=== PATIENT | male | born 1970 | race Caucasian/White ===

== ENCOUNTER → 2018-09-14 | Day surgery (SDC) | payer OTHER ==
[~2018-09-14] VITALS: Ht 190.5 cm; Wt 146.5 kg
[~2018-09-14] MED LIST: BUPIVAC MPF-EPI 0.5%-1:200000 30 ML VIAL. ONE; CELE200C PO; DEXAMETHASONE SOD PHOS 20 MG/5 ML VIAL. ONE; GLYCOPYRROLATE 1 MG/5 ML VIAL. ONE; HYDROmorphone 2 MG/ML VIAL IV PRN; IV RINGERS,LACTATED 1000ML 1,000 ML IV SCH; KETOROLAC 30 MG/ML INJ FOR OR. INJ ONE; LIDOCAINE 1% PF 2 ML VIAL. ID PRN; LIDOCAINE 2% PF Vial for OR 5 ML VIAL. ONE; MIDAZOLAM HCL/PF 2 MG/2 ML VIAL. ONE; MORPHINE SULFATE 2 MG/ML VIAL. IV PRN; NEOSTIGMINE METHYLSULFATE 5 MG/5 ML SYRINGE. ONE; ONDANSETRON PF 4 MG/2 ML VIAL. IV PRN; ONDANSETRON PF 4 MG/2 ML VIAL. ONE; OXYC-323 PO; PROCHLORPERAZINE 10 MG/2 ML VIAL. IV PRN; PROPOFOL 20 ML IV ONE; ROCURONIUM 50 MG/5 ML VIAL. ONE; SEVOFLURANE 61 TO 120 MINUTES. IH ONE; TRAM-48 PO; fentaNYL PF VIAL 100 MCG/2 ML VIAL IV PRN; fentaNYL PF VIAL 100 MCG/2 ML VIAL ONE; oxyCODONE/APAP 5/325 1 TAB TABLET PO PRN
--- NOTE | 2018-09-14 09:22 | PDOC4 ---
Operative Note Operative Note Date: 09/14/2018 Preoperative diagnosis: Incarcerated abdominal hernia Postoperative diagnosis: Same Procedure: Robotic-assisted laparoscopic ventral hernia repair with mesh Surgeon: Adelso Specimen: None Dictation: Patient is a 48 -year-old male with a painful bulge just above his umbilicus with incarcerated omentum consistent with a ventral hernia procedure of robotic-assisted laparoscopic ventral hernia repair with mesh was explained to the patient detail was benefits were also discussed including bleeding infection injury to intra-abdominal contents possibly necessitating further or open operations alternatives to this procedure also discussed with the patient seemed understanding gave both verbal and written consent had procedure performed. Patient was taken to the operating room placed supine position general anesthesia was initiated once patient was asleep and intubated his abdomen was prepped and draped usual sterile fashion using ChloraPrep. An area in the left upper quadrant was injected with quarter percent Marcaine with epinephrine incisions made lead blade scalpel and a Visiport 5 mm was used to gain access to the abdominal cavity and creating pneumoperitoneum once this complete 5 mm scope was placed and the abdomen was inspected no other at maladies were noted was noted that the ventral hernia was incarcerated with omentum. At this time a da [place] 8 mm port was placed in the mid left abdomen a second 8 mm da [place]ito port was placed in the left lower abdomen and the Visiport was changed out for da Chito 8 mm port. The da Chito robot was brought in and docked to all port sites surgeon went to the robotic console using grasper and Endo Barbara scissors the incarcerated omentum was reduced from the hernia defect. The hernia defect was then closed with a running 20 nonabsorbable V lock suture. Ventral light ST Bard mesh was then used to cover the hernia defect this was sewn in place with a running 20 the lock absorbable suture. Surgeon returned to the operative field. The da Chito robot was undocked from all port sites ports were all removed the pneumoperitoneum was reduced and the skin incisions were all closed with 4-0 subcuticular Monocryl Mastisol Steri- Strips and island dressings were applied. Patient was waken next made in the operating room taken recovery in stable condition all sponge instrument needle counts listed as correct estimated blood loss 5 mL KARLA HERNANDEZ MD Sep 14, 2018 09:22
--- NOTE | 2018-09-14 09:23 | DISCH ---
DISCHARGE INSTRUCTIONS Condition on Discharge Condition on Discharge: Stable Activity After Discharge Activity Instructions for Disc: Avoid exertion Other activity instructions: no lifting more than 20 pounds for 2 weeks Diet after Discharge Diet after Discharge: Regular Wound Incision Care Other wound/incision instructi: May shower in 24 hours Contacting the DRBrett after DC Call your doctor for: If your condition worsens Follow-Up Follow up with: Dr. Hernandez in 2 weeks KARLA HERNANDEZ MD Sep 14, 2018 09:23
[2018-09-14 10:45] VITALS: BP 131/78
== END | disposition home or self-care (01) ==
LOC: SURG 06:25
PROVIDERS: ATTEND Surgery
DX: K43.6 Other and unspecified ventral hernia with obstruction, without gangrene (principal); Z79.899 Other long term (current) drug therapy; Z87.891 Personal history of nicotine dependence; Z98.890 Other specified postprocedural states; Z72.89 Other problems related to lifestyle
CPT/HCPCS: 49653; A7015; C1781; J1100; J1885; J2250; J2405; J2704; J2710; J3010; J3490; S2900; J2001